=== PATIENT | female | born 1995 | race Caucasian/White ===

== ENCOUNTER 2016-11-05 12:14 | Emergency (ER) | payer MEDICAID ==
[~2016-11-05] VITALS: Ht 152.4 cm; Wt 75.0 kg
[~2016-11-05 12:14] MED LIST: LEVE500T8 PO; PARO20TA2 PO
[2016-11-05 12:15] VITALS: BP 116/78; PULSE 112; RESP 24; TEMP 98; O2SAT 98
[2016-11-05 12:30] VITALS: BP 143/72; PULSE 107; RESP 21; O2SAT 97
[2016-11-05] MEDS ORDERED: SODIUM CHLOR 0.9% 1000 ML INJ 1,000 ML IV SCH (12:35)
[2016-11-05] MEDS ORDERED: ONDANSETRON HCL 4 MG/2 ML VIAL IVP ONE (12:45)
[2016-11-05] MEDS ORDERED: SODIUM CHLORIDE 0.9% FLUSH 10 ML FLUSH IV FLUSH PRN (12:45)
[2016-11-05] MEDS ORDERED: FAMOTIDINE 20 MG/2 ML VIAL IV PUSH ONE (12:45)
[2016-11-05 13:23] LABS: HEMATOCRIT 41.6 % (35.0-46.0); MEAN CELL VOLUME 94.5 FL (80.0-100.0); MEAN CORPUSCULAR HEMOGLOBIN 32.8 PG (27.0-34.0); MEAN CORPUSCULAR HGB CONC 34.7 % (32.0-36.0); PLATELET COUNT 228 TH/MM3 (150-450); RED CELL DISTRIBUTION WIDTH 12.8 % (11.6-17.2); WHITE BLOOD COUNT 13.8 TH/MM3 (4.0-11.0)
[2016-11-05 13:24] LABS: HEMO FLAGS AUTO DIFF
[2016-11-05 13:31] LABS: ANION GAP 6 MEQ/L (5-15); AST (GOT) 17 U/L (15-37); BICARBONATE 26.6 MEQ/L (21.0-32.0); BLOOD UREA NITROGEN 21 MG/DL (7-18); CHLORIDE 109 MEQ/L (98-107); GLOMERULAR FILTRATION RATE 101 ML/MIN (>89); SODIUM (NA) 142 MEQ/L (136-145)
[2016-11-05 13:34] LABS: ALKALINE PHOSPHATASE 63 U/L (45-117); ALT (GPT) 25 U/L (10-53); TOTAL BILIRUBIN ADULT 0.6 MG/DL (0.2-1.0)
[2016-11-05] MEDS ORDERED: IOHEXOL 350 MG/ML 10 ML VIAL (for RAD DIAG) IV ONE (13:35)
[2016-11-05 13:36] LABS: APTT (PATIENT) 25.2 SEC (24.3-30.1); PROTHROMBIN TIME - PATIENT 10.9 SEC (9.8-11.6)
[2016-11-05 13:53] LABS: BACTERIA, URINE FEW /hpf; BLOOD, URINE NEG (NEG); COMMENT (UR) CULT NOT INDICATED; CULTURE IF INDICATED CULT NOT INDICATED; GLUCOSE,URINE NEG (NEG); KETONE, URINE NEG (NEG); NITRITE,URINE NEG (NEG); SQUAMOUS EPITHELIAL CELL URINE 5 /hpf (0-5); URINE COLOR YELLOW (YELLW/STRAW)
--- NOTE | 2016-11-05 13:53 | RADRPT ---
EXAM DATE/TIME: 11/05/2016 13:30 [facility] COMPARISON: CT ABDOMEN & PELVIS W/O CONTRAST, February 21, 2016, 19:14. INDICATIONS : Mid abdominal pain. IV CONTRAST: 97 cc Omnipaque 350 (iohexol) IV ORAL CONTRAST: No oral contrast ingested. RADIATION DOSE: 8.27 CTDIvol (mGy) MEDICAL HISTORY : Seizures. SURGICAL HISTORY : None. ENCOUNTER: Initial ACUITY: 1 day PAIN SCALE: 4/10 LOCATION: Bilateral middle abdomen TECHNIQUE: Volumetric scanning of the abdomen and pelvis was performed. Using automated exposure control and adjustment of the mA and/or kV according to patient size, radiation dose was kept as low as reasonably achievable to obtain optimal diagnostic quality images. DICOM format image data is av ailable electronically for review and comparison. FINDINGS: CT Abdomen: The liver, spleen, pancreas, kidneys, adrenals are unremarkable. There is no evidence for any appreciable pathological adenopathy, free fluid, or bowel obstruction. CT pelvis: There is no evidence for mass, abscess formation, or any significant adenopathy within the pelvis. CONCLUSION: Essentially unremarkable study. Paulina Sprague MD on November 05, 2016 at 13:49 Board Certified Radiologist. This report was verified electronically.
[2016-11-05 13:58] LABS: EOSINOPHILS 1 % (0-4); NEUTROPHIL # MANUAL DIFF 12.1 TH/MM3 (1.8-7.7); POLYS (SEG NEUTROPHILS) 88 % (16-70); WBC DIFF SAMPLE 100
[2016-11-05 13:59] LABS: SCAN/DIFF FINAL DIFF MANUAL
[2016-11-05] MEDS ORDERED: ONDANSETRON HCL 4 MG/2 ML VIAL IV PUSH ONE (15:00)
[2016-11-05 15:02] VITALS: BP 108/59; PULSE 99; RESP 18; O2SAT 98
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
== END 2016-11-05 18:15 | disposition home or self-care (01) ==
LOC: NEPD 12:14
DX: R11.2 Nausea with vomiting, unspecified (principal); R10.9 Unspecified abdominal pain; J45.909 Unspecified asthma, uncomplicated; R56.9 Unspecified convulsions; Z79.899 Other long term (current) drug therapy; Z88.2 Allergy status to sulfonamides
CPT/HCPCS: 74177; 80053; 81001; 83690; 84703; 85007; 85027; 85610; 85730; 87081; 87880; 96361; 96374; 96375; 96376; 99285; J2405; J7030; Q9967

== ENCOUNTER 2017-01-06 16:47 | Emergency (ER) | payer SELFPAY ==
[~2017-01-06] VITALS: Ht 152.4 cm; Wt 75.0 kg
[~2017-01-06 16:47] MED LIST changes: -PARO20TA2 PO
[2017-01-06 16:51] VITALS: BP 127/75; PULSE 89; RESP 21; TEMP 98.9; O2SAT 98
[2017-01-06] MEDS ORDERED: KETOROLAC TROMETHAMINE 60 MG/2 ML (IM) VIAL IM ONE (17:15)
[2017-01-06] MEDS ORDERED: LEVE500 PO (17:15)
[2017-01-06] MEDS ORDERED: LORazepam 2 MG/ML VIAL IM ONE (17:15)
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
--- NOTE | 2017-01-06 18:19 | RADRPT ---
EXAM DATE/TIME: 01/06/2017 17:56 [facility] COMPARISON: No previous studies available for comparison. INDICATIONS : Lower back pain. No known injury. Patient does some lifting for work. MEDICAL HISTORY : None. SURGICAL HISTORY : None. ENCOUNTER: Initial ACUITY: 1 day PAIN SCORE: 8/10 LOCATION: L-Spine FINDINGS: Two view examination was performed. There are five non-rib bearing vertebral bodies. The vertebral bodies are in normal alignment without evidence of subluxation or scoliosis. The disc spaces are ariana ntained. The pedicles are intact. Bony mineralization is normal. No fracture is identified. CONCLUSION: 1. Unremarkable lumbar spine radiographs. Federico Marin MD on January 06, 2017 at 18:17 Board Certified Radiologist. This report was verified electronically.
--- NOTE | 2017-01-06 18:27 | RADRPT ---
EXAM DATE/TIME: 01/06/2017 17:57 [facility] COMPARISON: No previous studies available for comparison. INDICATIONS : Pain in upper back. No known specific injury, patient does some lifting for work. MEDICAL HISTORY : None. SURGICAL HISTORY : None. ENCOUNTER: Initial ACUITY: 1 day PAIN SCORE: 8/10 LOCATION: T-Spine FINDINGS: There is normal alignment of the thoracic vertebral bodies. Vertebral body height is maintained. No evidence of fracture or subluxation. Pedicles are intact at all levels. The paravertebral reflecti ons are not thickened. CONCLUSION: 1. Unremarkable thoracic spine radiographs. Federico Marin MD on January 06, 2017 at 18:25 Board Certified Radiologist. This report was verified electronically.
[2017-01-06] MEDS ORDERED: AMOX875T PO (19:18)
[2017-01-06] MEDS ORDERED: NAPR-239 PO (19:18)
[2017-01-06] MEDS ORDERED: BACL10TA PO (19:18)
== END 2017-01-06 19:51 | disposition home or self-care (01) ==
LOC: NEPD 16:47
DX: S29.012A Strain of muscle and tendon of back wall of thorax, initial encounter (principal); R56.9 Unspecified convulsions; X50.9XXA Other and unspecified overexertion or strenuous movements or postures, initial encounter; Y93.F2 Activity, caregiving, lifting; Y92.129 Unspecified place in nursing home as the place of occurrence of the external cause; Y99.0 Civilian activity done for income or pay; K08.89 Other specified disorders of teeth and supporting structures
CPT/HCPCS: 72072; 72100; 84703; 96372; 99284; J1885; J2060